=== PATIENT | male | born 1945 | race Caucasian/White ===

== ENCOUNTER → 2018-10-02 | Outpatient (CLI) | payer MEDICARE, OTHER | LOC: M.RAD 12:31 | DX: J44.9 Chronic obstructive pulmonary disease, unspecified (principal); T17.908A Unspecified foreign body in respiratory tract, part unspecified causing other injury, initial encounter; J84.10 Pulmonary fibrosis, unspecified; J40 Bronchitis, not specified as acute or chronic; K21.0 Gastro-esophageal reflux disease with esophagitis; I70.0 Atherosclerosis of aorta; K44.9 Diaphragmatic hernia without obstruction or gangrene; X58.XXXA Exposure to other specified factors, initial encounter; Y93.89 Activity, other specified; Y92.89 Other specified places as the place of occurrence of the external cause; Y99.8 Other external cause status ==

== ENCOUNTER → 2019-09-02 | Outpatient (CLI) | payer MEDICARE, OTHER | LOC: M.CT 07:41 | DX: K57.32 Diverticulitis of large intestine without perforation or abscess without bleeding (principal); K35.80 Unspecified acute appendicitis; K57.30 Diverticulosis of large intestine without perforation or abscess without bleeding ==

== ENCOUNTER → 2019-09-12 | Outpatient (CLI) | payer MEDICARE, OTHER | LOC: M.RAD 09:49 | DX: M25.712 Osteophyte, left shoulder (principal); M19.012 Primary osteoarthritis, left shoulder ==

== ENCOUNTER → 2019-11-20 | Outpatient (CLI) | payer MEDICARE, OTHER | LOC: M.RAD 10:16 | DX: N64.4 Mastodynia (principal); I77.819 Aortic ectasia, unspecified site ==

== ENCOUNTER → 2020-04-28 | Outpatient (CLI) | payer MEDICARE, OTHER | LOC: M.ULTRA 11:05 | PROVIDERS: ATTEND Internal Medicine | DX: I82.432 Acute embolism and thrombosis of left popliteal vein (principal); Z98.890 Other specified postprocedural states ==

== ENCOUNTER 2021-05-01 17:26 | Emergency (ER) | payer MEDICARE, OTHER ==
[~2021-05-01] VITALS: Ht 162.6 cm; Wt 65.8 kg
[2021-05-01 17:33] VITALS: BP 136/97
[2021-05-01] MEDS ORDERED: BENICAR20 MG PO (17:39)
[2021-05-01] MEDS ORDERED: NORVASC5 MG PO (17:39)
[2021-05-01] MEDS ORDERED: ROSUVASTATIN CA40 MG PO (17:39)
[2021-05-01] MEDS ORDERED: PROTONIX40 M4 PO (17:40)
[2021-05-01] MEDS ORDERED: MONTELUKAST SODI4 M1 PO (17:40)
[2021-05-01] MEDS ORDERED: AMARYL2 MG PO (17:40)
[2021-05-01] MEDS ORDERED: FISH OIL 1,0001 EAC9 PO (17:41)
[2021-05-01] MEDS ORDERED: ADVAIR 250-501 EACH INH (17:41)
[2021-05-01] MEDS ORDERED: PROAIR HFA8.5 GM INH (17:41)
[2021-05-01] MEDS ORDERED: TRAMADOL 50 MG50 MG PO (17:41)
[2021-05-01] MEDS ORDERED: D3-200050 MCG PO (17:41)
[2021-05-01] MEDS ORDERED: ASA81BEC PO (17:42)
[2021-05-01] MEDS ORDERED: NASACORT10.8 ML INH (17:42)
[2021-05-01] MEDS ORDERED: PREDNISONE 20 M20 M1 PO (18:22)
[2021-05-01] MEDS ORDERED: FLEXERIL PO (18:22)
[2021-05-01] MEDS ORDERED: HYDROCODON-ACE1 EAC7 PO (18:22)
== END 2021-05-01 18:40 | disposition home or self-care (01) ==
LOC: M.ERS 17:26
DX: G89.29 Other chronic pain (principal); M54.2 Cervicalgia; I10 Essential (primary) hypertension; E78.00 Pure hypercholesterolemia, unspecified; Z88.1 Allergy status to other antibiotic agents; Z88.8 Allergy status to other drugs, medicaments and biological substances; Z79.899 Other long term (current) drug therapy